=== PATIENT | female | born 1950 | race Caucasian/White ===

== ENCOUNTER 2016-11-18 12:43 | Inpatient (IN) | payer OTHER ==
[2016-11-18] MEDS ORDERED: ALLER-CHLOR4 M1 PO (13:35)
[2016-11-18] MEDS ORDERED: ZOCOR40 M1 PO (13:36)
[2016-11-18] MEDS ORDERED: COZAAR100 M1 PO (13:36)
[2016-11-18] MEDS ORDERED: OMEPRAZOLE40 M2 PO (13:36)
[2016-11-18] MEDS ORDERED: ALLERGY RELIEF10 M4 PO (13:39)
[2016-11-18 15:08] LABS: BASO % 0.3 % (0-2); EOS % 0.3 % (0-7); HCT-HEMATOCRIT 37.9 % (34.0-49.0); HGB-HEMOGLOBIN 11.8 gm/dl (12.0-15.5); LYMPH % 13.7 % (20-45); LYMPH ABSOLUTE COUNT 0.9 tho/cmm (0.8-4.5); MCH (MEAN CORPUSCULAR HGB) 25.3 pg (28.0-32.0); MCHC MEAN CORPUSCULAR HGB CONC 31.1 % (32.0-36.0); MCV (MEAN CELL VOLUME) 81.3 fl (82.0-96.0); MEAN PLATELET VOLUME 10.7 cmc (9.4-12.4); MONO % 4.1 % (0-12); MONOCYTE ABSOLUTE COUNT 0.3 tho/cmm (0.0-1.2); NEUTROPHIL ABSOLUTE COUNT 5.4 tho/cmm (1.6-8.0); NEUTROPHIL-AUTOMATED 5.4 tho/cmm (1.6-8.0); NEUTROPHILS % 81.6 % (40-80); PLATELET COUNT 189 tho/cmm (150-450); RED BLOOD COUNT 4.66 mil/cmm (4.00-5.20); RED CELL DISTRIBUTION WIDTH 16.5 % (12.4-16.4); WHITE BLOOD COUNT 6.6 tho/cmm (4.0-10.0)
[2016-11-19 03:10] LABS: BASO % 0.5 % (0-2); EOS % 1.9 % (0-7); EOSINOPHIL ABSOLUTE COUNT 0.1 tho/cmm (0.0-0.7); HCT-HEMATOCRIT 35.1 % (34.0-49.0); HGB-HEMOGLOBIN 10.9 gm/dl (12.0-15.5); IMMATURE GRANULOCYTES ABSOLUTE 0.01 tho/cmm (0-0.03); IMMATURE GRANULOCYTES PERCENT 0.2 % (0-0.3); LYMPH ABSOLUTE COUNT 2.3 tho/cmm (0.8-4.5); MCH (MEAN CORPUSCULAR HGB) 25.1 pg (28.0-32.0); MCHC MEAN CORPUSCULAR HGB CONC 31.1 % (32.0-36.0); MCV (MEAN CELL VOLUME) 80.9 fl (82.0-96.0); MEAN PLATELET VOLUME 9.9 cmc (9.4-12.4); MONO % 10.8 % (0-12); MONOCYTE ABSOLUTE COUNT 0.6 tho/cmm (0.0-1.2); NEUTROPHIL ABSOLUTE COUNT 2.8 tho/cmm (1.6-8.0); NEUTROPHIL-AUTOMATED 2.8 tho/cmm (1.6-8.0); NEUTROPHILS % 47.6 % (40-80); PLATELET COUNT 170 tho/cmm (150-450); RED BLOOD COUNT 4.34 mil/cmm (4.00-5.20); RED CELL DISTRIBUTION WIDTH 16.5 % (12.4-16.4); WHITE BLOOD COUNT 5.9 tho/cmm (4.0-10.0)
[2016-11-19 03:22] LABS: ANION GAP 12 mmol/L (0-20); BLOOD UREA NITROGEN 12 mg/dl (6-24); CARBON DIOXIDE-VENOUS 25 mmol/L (22-32); CHLORIDE 108 mmol/l (96-110); CREATININE 0.83 mg/dl (0.50-1.10); GLUCOSE 116 mg/dL (70-110); POTASSIUM 4.3 mmol/L (3.7-5.1); SODIUM 141 mmol/L (135-145); eGFR VALUE FOR BLACK 86 mL/Min
[2016-11-19 05:51] LABS: ABG CO2 ARTERIAL 24 mmol/L (21-27); ARTERIAL BLD GAS O2 SATURATION 91 % (95-98); ARTERIAL BLOOD GAS PCO2 35 mmHg (32-45); ARTERIAL PO2 57 mmHg (70-100); BICARBONATE 23 mmol/L (21-28); BLOOD GAS BASE EXCESS 0 mM/L (-/+3); PH 7.44 Units (7.35-7.45)
[2016-11-19 13:09] LABS: IRON 29 ug/dl (37-170); IRON BINDING CAPACITY 430 ug/dl (250-450)
--- NOTE | 2016-11-19 18:45 | NUR ---
VIRTUAL CARE NOTE: PT. IS UP IN HER CHAIR, DENIES PAIN AT THIS TIME, STATES ISN'T HAVING SOB WITH WALKING, JUST COUGHING AT TIMES. STATES ALSO HAS TOLERATED HER MEDS SO FAR. INSTRUCTED TO CALL FOR FURTHER NEEDS. STAFF ON UNIT PAGED, PT. THEN STATES HER SCD IS OFF ALSO STATES VERBAL AGREEMENT WITH INSTRUCTIONS.
[2016-11-20 05:51] LABS: PLATELET COUNT 201 tho/cmm (150-450)
[2016-11-20] MEDS ORDERED: XARELTO1 EACH (10:22)
[2016-11-20] MEDS ORDERED: XARELTO20 M1 PO (10:23)
[2016-11-20] MEDS ORDERED: TOPROL XL25 M1 PO (10:24)
[2016-11-20] MEDS ORDERED: STOP HOME MEDICATION (10:26)
== END 2016-11-20 14:45 | DRG 176 ==
LOC: CCU 12:43 → 5WD 11-19 14:20
PROVIDERS: Internal Medicine Pulmonary Disease; ADMIT Hospitalist
DX: I26.99 Other pulmonary embolism without acute cor pulmonale (principal); Z68.42 Body mass index [BMI] 45.0-49.9, adult; I10 Essential (primary) hypertension; I82.4Z1 Acute embolism and thrombosis of unspecified deep veins of right distal lower extremity; G47.33 Obstructive sleep apnea (adult) (pediatric); E66.01 Morbid (severe) obesity due to excess calories; E78.5 Hyperlipidemia, unspecified; K21.9 Gastro-esophageal reflux disease without esophagitis; D50.9 Iron deficiency anemia, unspecified; K44.9 Diaphragmatic hernia without obstruction or gangrene; Z88.2 Allergy status to sulfonamides; Z79.899 Other long term (current) drug therapy
CPT/HCPCS: G0009; J1644